=== PATIENT | male | born 1985 | race Caucasian/White ===

== ENCOUNTER 2019-04-16 10:12 | Emergency (ER) | payer OTHER, SELFPAY ==
[2019-04-16 10:30] VITALS: BP 141/80; PULSE 70; RESP 16; TEMP 36.7; O2SAT 97; BMI 37.6
--- NOTE | 2019-04-16 10:47 | ED.WOUNDLAC ---
HPI - Wound/Laceration General Chief Complaint: Wound/Laceration Stated Complaint: stabbed self in left arm with fillet knife Time Seen by Provider: 04/16/19 10:35 Source: patient Mode of arrival: Ambulatory Limitations: no limitations History of Present Illness HPI narrative: This is a 33-year-old male presents with laceration to his left wrist. Patient was working [employer] when he accidentally stabbed himself and his distal radial area he did have a small amount of spurting of blood which was controlled with direct pressure. Because of bleeding he was sent here for further evaluation. He denies any tingling or numbness in his hand, denies any weakness in his fingers. This happened 30 minutes prior to arrival. Related Data Previous Rx's Medication Instructions Recorded oxycodone-acetaminophen 0 tab PO Q4HP PRN #30 tab 10/07/16 cephalexin 500 mg PO QID #16 cap 04/16/19 Allergies Allergy/AdvReac Type Severity Reaction Status Date / Time Penicillins [PENICILLINS] Allergy Unknown Unverified 08/19/17 12:42 Review of Systems Constitutional Constitutional: Denies fever(s) Integumentary/Breasts Skin/Breast: Reports wounds Exam Narrative Exam Narrative: General: Non-toxic, well-appearing Head: Atraumatic Neck: Normal range of motion Cardiac: RRR on my exam Respiratory: Normal work of breathing Abd: Soft, non-distended Extrem: Over the left volar surface of the wrist on the radial aspect there is a 1 cm laceration which extends through the subcutaneous tissue. Patient has 5/5 strength of the hands with hand squeeze, finger abduction and thumb extension. Sensation is intact to light touch or distribution of the median, radial, ulnar nerves. Has brisk capillary refill and he has a palpable radial pulse distal to the laceration. Patient able to flex his fingers against resistance both at the MCP PIP and the DIP. Neuro: Alert and oriented x 3 Initial Vital Signs Initial Vital Signs: Vital Signs Temperature 98.1 F 04/16/19 10:30 Pulse Rate 70 04/16/19 10:30 Respiratory Rate 16 04/16/19 10:30 Blood Pressure 141/80 H 04/16/19 10:30 Pulse Oximetry 97 04/16/19 10:30 Procedures Laceration Repair L wrist: Site: upper extremity Side (If applicable): left Size (cm): 1 Description: linear Depth: simple, single layer Pre-repair: wound explored and irrigated extensively Skin layer closed with: dermabond Course Orders Ordered: Discontinued Medications Diphtheria/Tetanus/Acell Pertussis (Adacel) 0.5 ml IM .ONCE ONE Stop: 04/16/19 11:47 Last Admin: 04/16/19 11:49 Dose: 0.5 ml Documented by: MICAH Ondansetron HCl (Zofran) 4 mg PO NOW ONE Stop: 04/16/19 10:48 Last Admin: 04/16/19 11:01 Dose: Not Given Documented by: MICAH Ondansetron HCl (Zofran Odt) 4 mg SL NOW ONE Stop: 04/16/19 10:58 Last Admin: 04/16/19 11:01 Dose: 4 mg Documented by: MICAH Vital Signs Vital signs: Vital Signs - 8 hr 04/16/19 13:13 Pulse Rate 83 Respiratory Rate 16 Blood Pressure [Right Arm] 138/75 Pulse Oximetry 97 MDM - Wound/Laceration Differential Diagnosis Differential diagnosis: Likely laceration, abrasion and other (Arterial injury) Medical Records Attestation: I reviewed the patient's medical records. [facility] Narrative Medical decision making narrative: Patient presents with a laceration which is over the area of the radial artery, however he has no active bleeding. On exploration the wound extends into subcutaneous tissue, there is no nerve or tendon involvement, no pulsatile bleeding or significant oozing on my exam, his entire hand is neurovascularly intact. I did use bedside ultrasound to examine the artery, he has good pulsatile flow both before and after the area of the injury, there is a small amount of hematoma which is less than 0.5 cm around the radial artery visible only on ultrasound, but there is no significant swelling in the skin itself. I do not see signs of any significant arterial injury, his capillary refill is brisk, and I think this will heal without further intervention. After his wound was clean, I did clean it further with chlorhexidine, and it was repaired using Steri-Strips and Dermabond. I reviewed return precautions with the patient, and he was actually discharged from the hospital but soon after he left the hospital he developed a a expanding hematoma of his wrist so he return immediately to the emergency department. Pressure bandage was applied once again, and he had excellent hemostasis. I spoke with Dr. Bruner of vascular surgery at [facility], she recommended keeping a pressure bandage for 30 minutes, and then reducing the pressure and checking for signs of expanding hematoma, bleeding, or ischemia of the hand. If he is well appearing and there are no signs of recurrent bleeding, she recommended discharge with a splint. If he has recurrent bleeding or other concerning signs recommended transfer to the emergency department in [facility]. After 30 minutes of direct pressure has bandages removed and his hematoma has decreased significantly, he has continued brisk capillary refill of his digits, ultrasound shows good collateral flow from the ulnar artery and flow present in the distal radial artery as well. There is some hematoma around the artery, but the lumen is patent through this area of injury. He continues to be neurovascularly intact. He was given a cock-up splint after a bandage is applied to the wrist, and again reviewed return precautions with any his repeated bleeding, expanding hematoma, pain or numbness in the hand, or any other concerning symptoms such as signs of infection. I did prescribe a short course of Keflex for prophylaxis given extension of his wound through the subcutaneous tissue, and its contamination. Patient agreed to this plan and was discharged home in good condition Discharge Plan Departure Patient Disposition: Home Clinical Impression: Laceration Discharge Date/Time: 04/16/19 13:31 Instructions: How to Care for a Laceration After Repair Activity Restrictions/Additional Instructions: You were seen for a cut on your wrist. This appears to have nicked your artery as well. This has been repaired with Steri-Strips and glue. It is okay to run water over this wound but do not scrub at it. The Steri-Strips and glue should flake off on their own over the next week or 2. Keep the splint in place for the next 72 hours, he may remove it for showering. Avoid doing any strenuous activity or if you developed swelling around or beneath the wound, bleeding, or any signs of infection such as fever, redness extending up the arm, or pus draining from the wound, return to the emergency department. Follow up with your PCP within 1 week for a recheck. Prescriptions: New cephalexin 500 mg capsule 500 mg PO QID Qty: 16 RF: 0 No Action oxycodone-acetaminophen 5 MG/325 MG tablet 0 tab PO Q4HP PRNQty: 30 RF: 0 Stand Alone Forms: Work Release Note
[2019-04-16] MEDS: ONDANSETRON 4 MG ODT SL (11:01)
[2019-04-16 11:30] VITALS: BP 141/82; PULSE 74; RESP 20; O2SAT 100
--- NOTE | 2019-04-16 11:42 | PC.NURSE ---
Pt D/C'd and returned within a few minutes with wound bubbling up appears to have bleeding under the dermabond and steristrips. 2+ pulse, made aware. gauze and coban for pressure. pt reports pain radiating up arm.
[2019-04-16] MEDS: TET,DIPH,PERTUSS(ACELL),VAC/PF 0.5 ML SYRINGE IM (11:49)
--- NOTE | 2019-04-16 13:12 | PC.NURSE ---
Pt updated on plan of care by MD. pt verbalized understanding of compartment syndrome and signs of decreased blood flow and when to return to ED. VS updated. wrist splint applied and pt DC'd with updated DC paperwork.
[2019-04-16 13:13] VITALS: BP 138/75; PULSE 83; RESP 16; O2SAT 97
== END 2019-04-16 13:31 | disposition home or self-care (01) ==
PROVIDERS: Emergency Provider Emergency Medicine
DX: S61.512A Laceration without foreign body of left wrist, initial encounter (principal); Z23 Encounter for immunization; W26.0XXA Contact with knife, initial encounter; Y99.0 Civilian activity done for income or pay
CPT/HCPCS: 90471; 99282; 99284; 90715

== ENCOUNTER 2023-12-15 01:27 | Emergency (ER) | payer SELFPAY ==
[2023-12-15 01:37] VITALS: BP 178/65; PULSE 74; RESP 18; TEMP 36.6; O2SAT 98; BMI 36.5
--- NOTE | 2023-12-15 01:42 | ED.HA ---
HPI - Headache General Chief Complaint: Headache Stated Complaint: migranine for 14 hours, can't sleep Time Seen by Provider: 12/15/23 01:29 History of Present Illness HPI Narrative: 38-year-old male presents for 14 hours of headache. Patient reports gradually worsening pain in the bottom of his skull and upper neck that wraps around to his forehead. He states that he gets these headaches 3 to 4 times a month. Normally he was able to go to bed and sleep it off but tonight he was unable to fall asleep despite taking ibuprofen earlier in the afternoon. He states that he has never seen a primary care doctor for this before. Denies worst headache of life, denies numbness, weakness, vomiting. Related Data Previous Rx's Medication Instructions Recorded oxycodone-acetaminophen 5 mg-325 0 tab PO Q4HP PRN #30 tabs 10/07/17 mg tablet cephalexin 500 mg capsule 500 mg PO QID #16 caps 04/16/19 Allergies Allergy/AdvReac Type Severity Reaction Status Date / Time Penicillins [PENICILLINS] Allergy Unknown Unverified 08/19/17 12:42 Exam Initial Vital Signs Initial Vital Signs: Vital Signs Temperature 98 F 12/15/23 01:37 Pulse Rate 74 12/15/23 01:37 Respiratory Rate 18 12/15/23 01:37 Blood Pressure 178/65 H 12/15/23 01:37 Pulse Oximetry 98 12/15/23 01:37 Oxygen Delivery Method Room Air 12/15/23 01:37 Const: Awake, alert, no acute distress, nontoxic appearing Head/neck: Generalized tenderness to palpation along upper cervical/lower scalp region extending to forehead, full ROM Skin: Warm, Dry, intact, no rashes Neuro: AO x3, CN II-XII grossly intact, moves all extremities Course Orders Ordered: Sodium Chloride (Normal Saline 0.9%) 1,000 mls @ 1,000 mls/hr IV BOLUS ONE Stop: 12/15/23 02:40 Last Admin: 12/15/23 01:49 Dose: 1,000 mls/hr Documented By: MIR Discontinued Medications Diphenhydramine HCl (Diphenhydramine 50 Mg/Ml Vial) 50 mg IV NOW ONE Stop: 12/15/23 01:42 Last Admin: 12/15/23 01:51 Dose: 50 mg Documented By: MIR Ketorolac Tromethamine (Ketorolac 30 Mg/Ml Vial) 15 mg IV NOW ONE Stop: 12/15/23 01:42 Last Admin: 12/15/23 01:50 Dose: 15 mg Documented By: MIR Metoclopramide HCl (Metoclopramide 10 Mg/2 Ml Inj) 10 mg IV NOW ONE Stop: 12/15/23 01:42 Last Admin: 12/15/23 01:50 Dose: 10 mg Documented By: MIR Vital Signs Vital signs: Vital Signs - 8 hr 12/15/23 01:37 Temperature 98 F Pulse Rate 74 Respiratory Rate 18 Blood Pressure 178/65 H Pulse Oximetry 98 Oxygen Delivery Method Room Air MDM - Headache MDM Narrative Medical decision making narrative: Well-appearing patient with persistent headache. Headache description and distribution of pain consistent with tension type headache. He has no red flag signs of headache, based on exam and history no indication for advanced imaging at this time. Patient was given medications for headache with significant improvement. Patient stated that he felt much better and ready to go home. Offered note for work, patient declined. Patient was given a card with PCP referral numbers for follow up. Discharge Plan Departure Patient Disposition: Home Clinical Impression: Headache Instructions: DI for Headache Activity Restrictions/Additional Instructions: You may continue to take Tylenol and ibuprofen as needed for headache or discomfort. Make sure you stay hydrated and drink plenty of fluids. Since you have told me that you have several of these headaches per month I do recommend that you follow up with a primary care doctor. Use the card provided to you by the nurses for a list of available primary care doctors in the area. Prescriptions: No Action oxycodone-acetaminophen 5 MG/325 MG tablet 0 tab PO Q4HP PRNQty: 30 0RF cephalexin 500 mg capsule 500 mg PO QID Qty: 16 0RF Stand Alone Forms: Patient Portal/API
[2023-12-15] MEDS: SODIUM CHLORIDE 0.9% 1,000 ML 1000 ML IV (01:49)
[2023-12-15] MEDS: KETOROLAC 30 MG/ML VIAL 15 MG IV (01:50)
[2023-12-15] MEDS: METOCLOPRAMIDE 10 MG/2 ML INJ IV (01:50)
[2023-12-15] MEDS: diphenhydrAMINE 50 MG/ML VIAL IV (01:51)
== END 2023-12-15 02:48 | disposition home or self-care (01) ==
PROVIDERS: Emergency Provider Emergency Medicine
DX: R51.9 Headache, unspecified (principal)
CPT/HCPCS: 96361; 96374; 96375; 99283; 99284; J1200; J1885; J2765

== ENCOUNTER 2024-01-06 23:12 | Emergency (ER) | payer SELFPAY ==
[2024-01-06 23:15] VITALS: BP 125/76; PULSE 78; RESP 18; TEMP 36.2; O2SAT 94; BMI 36.9
--- NOTE | 2024-01-06 23:15 | ED_ITS ---
HPI - General Adult General Chief complaint: Altered Mental Status Stated complaint: ETOH Time Seen by Provider: 01/06/24 23:14 Source: patient Mode of arrival: EMS Limitations: other (Intoxicated) History of Present Illness HPI narrative: Patient is a 38-year-old male who arrives by EMS for evaluation of alcohol intoxication and vomiting. Patient states he ?drank too much? tonight. He states he drank vodka. He did smoke some marijuana. Denies any other drug use. contacted EMS because the patient had persistent vomiting. Related Data Previous Rx's Medication Instructions Recorded oxycodone-acetaminophen 5 mg-325 0 tab PO Q4HP PRN #30 tabs 10/07/ mg tablet cephalexin 500 mg capsule 500 mg PO QID #16 caps 04/16/19 Allergies Allergy/AdvReac Type Severity Reaction Status Date / Time Penicillins [PENICILLINS] Allergy Unknown Unverified 08/19/17 12:42 Review of Systems Cardiovascular Cardiovascular: Reports system reviewed and no additional complaints, except as documented Respiratory Respiratory: Reports system reviewed and no additional complaints, except as documented Gastrointestinal Gastrointestinal: Reports system reviewed and no additional complaints, except as documented Integumentary/Breasts Skin/Breast: Reports system reviewed and no additional complaints, except as documented Neurologic Neurologic: Reports system reviewed and no additional complaints, except as documented Exam Initial Vital Signs Initial Vital Signs: Vital Signs Temperature 97.2 F L 01/06/24 23:15 Pulse Rate 78 01/06/24 23:15 Respiratory Rate 18 01/06/24 23:15 Blood Pressure 125/76 01/06/24 23:15 Pulse Oximetry 94 01/06/24 23:15 Oxygen Delivery Method Room Air 01/06/24 23:15 Const General: cooperative and No ill appearing [facility] Head: normal to inspection and normocephalic Resp Effort & Inspection: normal respiratory effort Auscultation: clear to auscultation bilaterally Cardio Rate: regular rate Rhythm: regular rhythm Skin General: no rashes or lesions noted Neuro General: patient alert, patient awake, patient oriented x3 and moves all extremities Course Orders Ordered: ED Orders 01/06/24 23:29 Complete Blood Count AUTO DIFF Stat Comprehensive Metabolic Panel Stat Ethanol (ETOH) Stat Lipase Stat Discontinued Medications Ondansetron HCl (Ondansetron 4 Mg/2 Ml Inj) 4 mg IV NOW ONE Stop: 01/06/24 23:15 Last Admin: 01/06/24 23:25 Dose: 4 mg Documented By: Ondansetron HCl (Ondansetron 4 Mg Odt Prepack) 1 bottle MISC DIRECTED ONE Stop: 01/07/24 01:27 Vital Signs Vital signs: Vital Signs - 8 hr 01/06/24 23:15 01/06/24 23:17 01/06/24 23:17 Temperature 97.2 F L Pulse Rate 78 79 Respiratory Rate 18 Blood Pressure 125/76 125/76 Pulse Oximetry 94 91 Oxygen Delivery Method Room Air 01/06/24 23:30 01/06/24 23:32 01/06/24 23:32 Temperature Pulse Rate 78 71 Respiratory Rate 27 H 22 Blood Pressure 110/59 L Pulse Oximetry 93 95 Oxygen Delivery Method 01/07/24 00:00 01/07/24 00:00 01/07/24 00:30 Temperature Pulse Rate 76 Respiratory Rate 20 Blood Pressure 116/61 127/59 L Pulse Oximetry 97 Oxygen Delivery Method 01/07/24 00:30 Temperature Pulse Rate 82 Respiratory Rate 19 Blood Pressure Pulse Oximetry 97 Oxygen Delivery Method Room Air Medical Decision Making Lab Data Lab results reviewed: Yes I reviewed the patient's lab results. 01/06/24 23:29 01/06/24 23:29 Labs: Lab Results 01/06/24 Range/Units 23:29 WBC 11.5 H (4.5-11.0) X10^3/uL RBC 5.10 (4.5-5.9) X10^6/uL Hgb 14.8 (13.5-17.5) g/dL Hct 43.3 (41-53) % MCV 84.9 (80-100) fL MCH 29.0 (26-34) PG MCHC 34.2 (30-36) % RDW 13.8 (11.6-14.8) % Plt Count 284 (150-400) X10^3/uL Neut % (Auto) 52.0 (50-75) % Lymph % (Auto) 39.5 (25-40) % [place] % (Auto) 6.3 (3-14) % Eos % (Auto) 1.6 L (2-4) % Baso % (Auto) 0.6 (0-2) % Neut # (Auto) 6000 (7448-3996) /uL Lymph # (Auto) 4500 (8939-9266) /uL [place] # (Auto) 700 (0-900) /uL Eos # (Auto) 200 (0-450) /uL Baso # (Auto) 100 (0-100) /uL Sodium 143 (137-145) mmol/L Potassium 3.4 (3.4-5.1) mmol/L Chloride 107 (98-107) mmol/L Carbon Dioxide 21 L (22-32) mmol/L BUN 14 (9-20) mg/dL Creatinine 0.92 (0.66-1.25) mg/dL Estimated GFR > 60 (>60) mL/min BUN/Creatinine Ratio 15.2 (6-22) Glucose 141 H (70-100) mg/dL Calcium 9.0 (8.4-10.2) mg/dL Total Bilirubin 0.5 (0.2-1.3) mg/dL AST 34 (17-59) IU/L ALT 37 (<50) IU/L Alkaline Phosphatase 72 (38-126) U/L Total Protein 7.7 (6.3-8.2) g/dL Albumin 4.7 (3.5-5.0) g/dL Globulin 3.0 (1.7-4.1) g/dL Albumin/Globulin Ratio 1.6 (1.0-2.8) Lipase 80 (23-300) U/L Ethyl Alcohol 145 H ( - 10) mg/dL MDM Narrative Medical decision making narrative: Patient arrived vomiting. He was alert and oriented x3. Does admit to drinking alcohol. Alcohol level was elevated. Rest of his labs are unremarkable. Does not have pancreatitis. No signs of an acute withdrawal. After period of observation patient was no longer vomiting. He was clinically sober. Tolerated oral intake. Ambulated to the bathroom without any signs of weakness or instability. Patient is asking to be discharged home. Discharge Plan Departure Patient Disposition: Home Clinical Impression: Alcohol intoxication Activity Restrictions/Additional Instructions: No driving for the next 24 hours or in the future if you drink alcohol. Use the nausea medication as needed. Return to the emergency department for new symptoms. Prescriptions: No Action oxycodone-acetaminophen 5 MG/325 MG tablet 0 tab PO Q4HP PRNQty: 30 0RF cephalexin 500 mg capsule 500 mg PO QID Qty: 16 0RF Stand Alone Forms: Patient Portal/API
[2024-01-06 23:17] VITALS: BP 125/76; PULSE 79; O2SAT 91
[2024-01-06] MEDS: ONDANSETRON 4 MG/2 ML INJ IV (23:25)
[2024-01-06 23:30] VITALS: PULSE 78; RESP 27; O2SAT 93
[2024-01-06 23:32] VITALS: BP 110/59; PULSE 71; RESP 22; O2SAT 95
[2024-01-06 23:37] LABS: Add Manual Diff / Slide Review NO; Basophils Absolute Auto 100 /uL (0-100); Basophils Percent Auto 0.6 % (0-2); Eosinophils Absolute Auto 200 /uL (0-450); Eosinophils Percent Auto 1.6 % (2-4); Hematocrit 43.3 % (41-53); Hemoglobin 14.8 g/dL (13.5-17.5); Lymphocytes Absolute Auto 4500 /uL (1100-4500); Lymphocytes Percent Auto 39.5 % (25-40); Mean Corpuscular HGB Conc 34.2 % (30-36); Mean Corpuscular Volume 84.9 fL (80-100); Monocytes Absolute Auto 700 /uL (0-900); Monocytes Percent Auto 6.3 % (3-14); Neutrophils Absolute Auto 6000 /uL (1500-7000); Platelet Count 284 X10^3/uL (150-400); Red Cell Distribution Width 13.8 % (11.6-14.8); White Blood Cell Count 11.5 X10^3/uL (4.5-11.0)
[2024-01-07] VITALS (7 sets, daily range): BP systolic 116–133; BP diastolic 59–87; PULSE 68–84; RESP 18–20; TEMP 36.8; O2SAT 96–98
[2024-01-07 00:11] LABS: Alanine Aminotransferase 37 IU/L (<50); Albumin 4.7 g/dL (3.5-5.0); Albumin Globulin Ratio 1.6 (1.0-2.8); Alkaline Phosphatase 72 U/L (38-126); Aspartate Aminotransferase 34 IU/L (17-59); BUN Creatinine Ratio 15.2 (6-22); Bilirubin Total 0.5 mg/dL (0.2-1.3); Blood Urea Nitrogen 14 mg/dL (9-20); Carbon Dioxide 21 mmol/L (22-32); Chloride 107 mmol/L (98-107); Estimated Glomerular Filt Rate > 60 mL/min (>60); Ethanol (ETOH) 145 mg/dL; Glucose 141 mg/dL (70-100); HEMOLYSIS 19 (0-50); Lipase 80 U/L (23-300); Potassium 3.4 mmol/L (3.4-5.1); Sodium 143 mmol/L (137-145); Total Protein 7.7 g/dL (6.3-8.2)
[2024-01-07] MEDS: ONDANSETRON 4 MG ODT PREPACK 1 BOTTLE MISC (01:36)
== END 2024-01-07 01:46 | disposition home or self-care (01) ==
PROVIDERS: Emergency Provider Emergency Medicine
DX: F10.129 Alcohol abuse with intoxication, unspecified (principal); Y90.6 Blood alcohol level of 120-199 mg/100 ml; R11.10 Vomiting, unspecified
CPT/HCPCS: 36415; 80053; 80320; 83690; 85025; 96374; 99284; J2405

== ENCOUNTER 2024-01-15 05:22 | Emergency (ER) | payer SELFPAY ==
[2024-01-15 05:29] VITALS: BP 126/69; PULSE 75; RESP 16; TEMP 36.5; O2SAT 100; BMI 36.9
--- NOTE | 2024-01-15 05:29 | DI.RAD.S_ITS ---
PROCEDURE: XR WRIST LT MIN 3V INDICATIONS: pain and swelling TECHNIQUE: 4 views of the wrist were acquired. COMPARISON: None. FINDINGS: Bones: No fractures or dislocations. No suspicious bony lesions. Soft tissues: No suspicious soft tissue calcifications. IMPRESSION: No acute bony abnormality. Dictated by: Braulio Hurtado M.D. on 01/15/2024 at 8:26 Approved by: Braulio Hurtado M.D. on 01/15/2024 at 8:26
--- NOTE | 2024-01-15 05:30 | ED.EXTPRO ---
HPI - Extremity Problem General Chief complaint: Extremity Problem,Nontraumatic Stated complaint: left wrist swollen can't move fingers Time Seen by Provider: 01/15/24 05:29 History of Present Illness HPI Narrative: Patient 38-year-old male who presents today with left wrist pain and swelling. He reports he went to bed normal and woke up with some swelling and pain. He feels like he is little numbness. Denies any injury or elbow pain. Records have been reviewed he was seen evaluated here on 01/06/2024 after alcohol intoxication. He denies any sort of redness. No fever or chills. Right-hand dominant. Related Data Previous Rx's Medication Instructions Recorded oxycodone-acetaminophen 5 mg-325 0 tab PO Q4HP PRN #30 tabs 10/07/ mg tablet cephalexin 500 mg capsule 500 mg PO QID #16 caps 04/16/19 Allergies Allergy/AdvReac Type Severity Reaction Status Date / Time Penicillins [PENICILLINS] Allergy Unknown Unverified 08/19/17 12:42 Patient History Substance Use Type: does not use Exam Initial Vital Signs Initial Vital Signs: Vital Signs Temperature 97.7 F 01/15/24 05:29 Pulse Rate 75 01/15/24 05:29 Respiratory Rate 16 01/15/24 05:29 Blood Pressure 126/69 01/15/24 05:29 Pulse Oximetry 100 01/15/24 05:29 Oxygen Delivery Method Room Air 01/15/24 05:29 GENERAL: Well-appearing, well-nourished and in no acute distress. CARDIOVASCULAR: peripheral pulses in tact, cap refill <2 sec RESPIRATORY: No respiratory distress, speaks in full sentences without difficulty EXTREMITIES: Normal range of motion, no clubbing or edema. Neurovascularly intact Left upper extremity seem to be some swelling and mild deformity of the left wrist. He is able to make an okay sign radial median ulnar nerve intact NEUROLOGICAL: Cranial nerves II through XII grossly intact. Normal gait and speech. SKIN: Warm, dry, no petechiae, no rashes or lesions. Course Orders Ordered: ED Orders 01/15/24 05:29 XR wrist LT min 3V Stat Discontinued Medications Ibuprofen (Ibuprofen 400 Mg Tablet) 800 mg PO NOW ONE Stop: 01/15/24 05:47 Vital Signs Vital signs: Vital Signs - 8 hr 01/15/24 05:29 Temperature 97.7 F Pulse Rate 75 Respiratory Rate 16 Blood Pressure 126/69 Pulse Oximetry 100 Oxygen Delivery Method Room Air MDM - Extremity (Nontraumatic) Imaging Data Extremity x-ray #1: My Impression: No fracture Radiologist's Impression: Preliminary report no acute findings MDM Narrative Medical decision making narrative: Patient 38-year-old male presents today with left wrist swelling. Denies any injury. He does have some filling neurovascularly intact. No obvious sign of cellulitis. X-ray has been reviewed by myself no fracture identified. Patient is given ibuprofen and a wrist splint. Encouraged him to keep it elevated and ice Discharge Plan Departure Patient Disposition: Home Clinical Impression: Left wrist sprain Instructions: Wrist Sprain Activity Restrictions/Additional Instructions: *You have been diagnosed with left wrist sprain *What to do: At this time keep wrist elevated and ice. May wear splint as needed. *Continue to take medications as directed Ibuprofen Tylenol needed *Follow up with your primary care provider in 2-3 days or call [phone] *Return to ER if you should have increasing swelling pain redness or any new, worsening or concerning symptoms Prescriptions: No Action oxycodone-acetaminophen 5 MG/325 MG tablet 0 tab PO Q4HP PRNQty: 30 0RF cephalexin 500 mg capsule 500 mg PO QID Qty: 16 0RF Stand Alone Forms: Patient Portal/API
[2024-01-15] MEDS: IBUPROFEN 400 MG TABLET 800 MG PO (05:53)
== END 2024-01-15 06:01 | disposition home or self-care (01) ==
PROVIDERS: Emergency Provider Emergency Medicine
DX: S63.502A Unspecified sprain of left wrist, initial encounter (principal)
CPT/HCPCS: 73110; 99283; 99284